=== PATIENT | female | born 1990 | race Two or more races ===

== ENCOUNTER 2017-10-14 16:21 | Emergency (ER) | payer MEDICAID ==
[~2017-10-14] VITALS: Ht 154.9 cm; Wt 90.7 kg
[2017-10-14 16:28] VITALS: BP 113/61
[2017-10-14] MEDS ORDERED: LIDOCAINE 1% (LOCAL ANESTH.) PF 5ml SDV IJ ONE (18:00)
[2017-10-14] MEDS ORDERED: LIDOCAINE 1% HCL (LOCAL ANESTH.) INJ 20ML MDV ONE (18:00)
[2017-10-14] MEDS ORDERED: cefTRIAXone SOD 1,000 MG VL IM ONE (18:00)
== END 2017-10-14 18:36 | disposition home or self-care (01) ==
LOC: ER 16:21
DX: S30.861A Insect bite (nonvenomous) of abdominal wall, initial encounter (principal); Z88.0 Allergy status to penicillin; W57.XXXA Bitten or stung by nonvenomous insect and other nonvenomous arthropods, initial encounter; Y93.89 Activity, other specified; Y99.8 Other external cause status; Y92.89 Other specified places as the place of occurrence of the external cause
CPT/HCPCS: 96372; 99283; J0696; J2001